=== PATIENT | female | born 1980 | race Caucasian/White ===

== ENCOUNTER 2018-09-15 06:13 | Day surgery (SDC) | payer BC ==
[~2018-09-15] VITALS: Ht 177.8 cm; Wt 59.0 kg
[2018-09-15] VITALS (9 sets, daily range): BP systolic 101–119; BP diastolic 46–72
[2018-09-15] MEDS ORDERED: LAMOTRIGINE25 M1 PO (07:08)
[2018-09-15] MEDS ORDERED: Midazolam 2mg/2ml Inj ONE (07:08)
[2018-09-15] MEDS ORDERED: Lidocaine 1% MPF 10mg/ml 5ml ONE (07:08)
[2018-09-15] MEDS ORDERED: fentaNYL 100 mcg/2 mL IV ONE ×2 (07:08→07:54)
[2018-09-15] MEDS ORDERED: Propofol 200mg/20ml IV ONE (07:08)
[2018-09-15] MEDS ORDERED: Dexamethasone 4mg/ml vial ONE (07:09)
[2018-09-15] MEDS ORDERED: Ketorolac 30mg Inj ONE (07:09)
--- NOTE | 2018-09-15 07:20 | Anethesia Preoperative Eval ---
Anesthesia Pre-op PMH/ROS General Date of Evaluation: Sep 15, 2018 Time of Evaluation: 07:15 Anesthesiologist: Divya Alvarez CRNA ASA Score: ASA 2 Mallampati Score Class I : Soft palate, uvula, fauces, pillars visible Class II: Soft palate, uvula, fauces visible Class III: Soft palate, base of uvula visible Class IV: Only hard plate visible Mallampati Classification: Class II Surgeon: Tyler Cortes Diagnosis: Uterine leimyoma Surgical Procedure: Hysteroscopy, removal of leiomyoma/polyp Anesthesia History: none Family History: no anesthesia problems Allergies: Coded Allergies: Pistachio (Verified Allergy, Mild, 09/14/18) HIVES Medications: see eMAR Patient NPO?: Yes NPO Date: Sep 14, 2018 NPO Time: 2314 Past Medical History Cardiovascular: Denies: HTN, CAD, [place], valve dz, arrhythmia, other Pulmonary: Denies: asthma, COPD, CIERA, other Gastrointestinal/Genitourinary: Reports: other - Uterine polyp; Denies: GERD, CRI, ESRD Neurologic/Psychiatric: Reports: depression/anxiety, other - Migraines; Denies: dementia, CVA, TIA Endocrine: Denies: DM, hypothyroidism, steroids, other HEENT: Denies: cataract (L), cataract (R), glaucoma, PALA (L), PALA (R), other Hematology/Immune: Denies: anemia, DVT, bleeding disorder, other Musculoskeletal/Integumentary: Denies: OA, RA, DJD, DDD, edema, other PMH Narrative: as above PSxH Narrative: wisdom tooth extraction Anesthesia Pre-op Phys. Exam Physician Exam Last Vital Signs Date Time Temp Pulse Resp B/P (MAP) Pulse Ox O2 Delivery O2 Flow Rate FiO2 09/15/18 07:14 97.9 88 20 113/66 100 Room Air Constitutional: NAD Neurologic: CN 2-12 intact Cardiovascular: RRR Respiratory: CTA Gastrointestinal: S/NT/ND Airway Exam Mallampati Score: Class II MO: full Neck: no limitations TMD: >3FB Teeth: other - upper front dental impant Dentures: no upper, no lower Anesthesia Pre-op A/P Labs Chemistry Test 09/15/18 06:55 Human Chorionic Gonadotropin, Qual Pending Serum Test Chemistry Test 09/15/18 06:55 Human Chorionic Gonadotropin, Qual Negative (NEGATIVE) Test 09/15/18 06:55 Human Chorionic Gonadotropin, Qual Pending Risk Assessment & Plan Assessment: ASA 2; ok to proceed Plan: GA Status Change Before Surgery: No Pre-Antibiotics Drug: Divya Aden CRNA Sep 15, 2018 07:20
[2018-09-15] MEDS ORDERED: Lidocaine 1% 10mg/ml/Epi 0.005mg/ml 30ml vial INJ ONE (07:26)
[2018-09-15] MEDS ORDERED: BSS 15ml BTL ONE (07:26)
[2018-09-15] MEDS ORDERED: Lidocaine 1% Plain 30 ml INJ ONE (07:26)
[2018-09-15] MEDS ORDERED: Sterile Water Irrig 1000ml IRRIG ONE (07:30)
[2018-09-15] MEDS ORDERED: LR 1000ml ONE (07:30)
[2018-09-15] MEDS ORDERED: Metoclopramide 10mg/2ml Inj IVP PRN (07:45)
[2018-09-15] MEDS ORDERED: Hydromorphone 0.5mg/0.5ml inj IVP PRN (07:45)
--- NOTE | 2018-09-15 07:47 | Pre-Procedure Note/Attestation ---
Pre-Procedure Note/Attestation Complete Prior to Procedure Planned Procedure: not applicable Procedure Narrative: Hysteroscopy. D&C. Removal of Polyp Indications for Procedure Pre-Operative Diagnosis: H/O Heavy Vaginal Bleeding Attestation I attest that I discussed the nature of the procedure; its benefits; risks and complications; and alternatives (and the risks and benefits of such alternatives ), prior to the procedure, with the patient (or the patient's legal volunteer patient representative). I attest that, if there was a reasonable possibility of needing a blood transfusion, the patient (or the patient's legal volunteer patient representative) was given the [facility] standardized written summary, pursuant to the Danilo Bayron Blood Safety Act ([place] Health and Safety Code # 1645, as amended). I attest that I re-evaluated the patient just prior to the surgery and that there has been no change in the patient's H&P, except as documented below: Tyler Cortes MD Sep 15, 2018 07:47
[2018-09-15] MEDS ORDERED: Tylenol #3 tab (300mg/30mg) ORAL PRN (08:00)
[2018-09-15] MEDS ORDERED: Norco 5mg/325mg tab ORAL PRN (08:00)
[2018-09-15] MEDS ORDERED: D5 1/2NS 1,000 ML IV SCH (08:00)
[2018-09-15] MEDS ORDERED: HYDROmorphone 1mg/ml Carpuject SUBQ PRN (08:00)
[2018-09-15] MEDS ORDERED: NS Irrig 4000ml IRRIG ONE (08:09)
--- NOTE | 2018-09-15 08:43 | Brief Operative Note ---
Immediate Post Operative Note Operative Note Pre-op Diagnosis: H/O Heavy Vaginal Bleeding Procedure: Hysteroscopy. D&C. Removal of Polyp, Removal of Septum Post-op Diagnosis: same as pre-op Surgeon: Grabiel Cortes MD Anesthesia: general Specimen: yes - [facility] Complications: none Condition: stable Fluids: LR Estimated Blood Loss: minimal Drains: none Implant(s) used?: No Tyler Cortes MD Sep 15, 2018 08:43
--- NOTE | 2018-09-15 08:57 | Immediate Post-Op Evaluation ---
Immediate Post-Op Evalulation Immediate Post-Op Evalulation Procedure: Hysteroscopy, removal of leiomyoma Date of Evaluation: Sep 15, 2018 Time of Evaluation: 08:44 IV Fluids: LR 1100 ml Estimated Blood Loss: in field, minimal Blood Pressure Systolic: 115 Blood Pressure Diastolic: 72 Pulse Rate: 89 Respiratory Rate: 20 O2 Sat by Pulse Oximetry: 100 Temperature (Fahrenheit): 97.8 Pain Score (1-10): 0 Nausea: No Vomiting: No Complications none Patient Status: awake, reacts, patent, extubated Hydration Status: adequate Drug: Cefazolin 2 gm Given Within 1 Hr of Incision: Yes Time Given: 08:00 Divya Alvarez CRNA Sep 15, 2018 08:57
--- NOTE | 2018-09-15 09:45 | 48 Hour Post Anesthesia Eval ---
Post Anesthesia Evaluation Procedure: Hysteroscopy, removal of leiomyoma Date of Evaluation: Sep 15, 2018 Time of Evaluation: 09:44 Blood Pressure Systolic: 110 0: 50 Pulse Rate: 81 Respiratory Rate: 20 Temperature (Fahrenheit): 98.0 O2 Sat by Pulse Oximetry: 100 Airway: patent Nausea: No Vomiting: No Pain Intensity: 2 Hydration Status: adequate Cardiopulmonary Status: stable Mental Status/LOC: patient returned to baseline Follow-up Care/Observations: per Gyne Post-Anesthesia Complications: none Follow-up care needed: ready to discharge Divya Alvarez CRNA Sep 15, 2018 09:45
--- NOTE | 2018-09-15 16:45 | Operative Note - Dictated ---
DATE OF OPERATION: 09/15/2018 PREOPERATIVE DIAGNOSIS: History of heavy vaginal bleeding. POSTOPERATIVE DIAGNOSIS: Heavy vaginal bleeding. PROCEDURE: Hysteroscopy, dilatation and curettage, removal of polyp. SURGEON: Tyler Cortes M.D. ANESTHESIA: General. ESTIMATED BLOOD LOSS: Minimal. COMPLICATIONS: None. CONDITION: Stable. PROCEDURE IN DETAIL: The patient was taken to the operating room. General anesthesia was administered by the anesthesiologist. She was placed in dorsal lithotomy position. She was prepped and draped in usual sterile fashion. Red Richardson catheter was placed inside the bladder. Clear urine was obtained. The catheter was then discontinued. A weighted speculum was placed inside the vagina. The anterior lip of the cervix was grasped with single-tooth tenaculum. The cervix was then gently dilated using appropriate size Hegar dilator. The hysteroscope was placed inside the uterine cavity. Uterine cavity was examined. While appeared to be a polyp versus some excessive tissue in the uterine cavity was noted, also in the midportion we noticed what appeared to be septum in the uterus. Right and left ostia were visualized. At this time using MyoSure device, we proceeded to remove all the excessive tissue as well as the polyps noted in the uterine cavity. We also proceeded to clear some of the tissue in the area of the septum. The area was thoroughly examined and tissue was removed and sent to pathology. At this time, hysteroscopy was performed at the conclusion of the procedure and uterine cavity was found to be quite adequate. All instruments were then removed from the vagina. Inflow and outflow of the fluid was found to be quite adequate . All instruments were then removed from the vagina. Sponge and instrument counts were correct x3 at the end of procedure. The patient tolerated the procedure well and was transferred to recovery room in stable condition. Tyler Cortes M.D. DR: Jewel JOB#: [id number] CC:
== END 2018-09-15 10:30 | disposition home or self-care (01) ==
LOC: SUR 06:13
DX: N93.9 Abnormal uterine and vaginal bleeding, unspecified (principal); N85.02 Endometrial intraepithelial neoplasia [EIN]; N84.0 Polyp of corpus uteri; F32.9 Major depressive disorder, single episode, unspecified; F41.9 Anxiety disorder, unspecified; G43.909 Migraine, unspecified, not intractable, without status migrainosus; Z91.018 Allergy to other foods
CPT/HCPCS: 36415; 58558; 84703; 86850; 86900; 86901; J1100; J1885; J2250; J2405; J2704; J3010